=== PATIENT | female | born 1935 ===

== ENCOUNTER 2016-08-05 04:39 | Inpatient (IN) | payer MEDICARE, MEDICAID ==
[2016-08-05] MEDS ORDERED: Albuterol-Ipratrop 3 mg / 0.5 (3 ml) UD INH STA ×2 (05:10→06:31)
--- NOTE | 2016-08-05 05:40 | ED PDOC ---
HPI: SOB/CHF/COPD Time Seen by Provider: 08/05/16 04:53 Chief Complaint (Nursing): Shortness Of Breath Chief Complaint (Provider): Shortness of breath History Per: Patient History/Exam Limitations: no limitations Onset/Duration Of Symptoms: Days (1) Current Symptoms Are (Timing): Still Present Associated Symptoms: Ankle/Leg Swelling. denies: Fever Additional History Per: Patient Additional Complaint(s): The pt is a 81yo female with PMHx of morbid obesity, HTN, asthma, presents to the ED for evaluation of worsening SOB for the past 1 day. Pt reports her SOB is worse when recumbent and states she has used her inhaler with little to no relief. She reports associated dry cough but denies any fever , nausea, vomiting or diarrhea. Currently offers no additional medical complaints. PMD: Dr. Je Valdez Past Medical History Reviewed: Historical Data, Nursing Documentation, Vital Signs Vital Signs: Last Vital Signs Temp 97.9 F 08/05/16 09:30 Pulse 92 H 08/05/16 10:39 Resp 16 08/05/16 10:39 BP 161/92 H 08/05/16 14:41 Pulse Ox 98 08/05/16 10:39 - Medical History PMH: HTN, Pneumonia Denies: HIV, Chronic Kidney Disease - Family History Family History: States: Unknown Family Hx - Social History Current smoker - smoking cessation education provided: No Alcohol: None Drugs: Denies - Home Medications Home Medications: Ambulatory Orders Medication Instructions Recorded Budesonide/Formoterol Fumarate 1 puff IH DAILY 08/05/16 [Symbicort 160-4.5 Mcg Inhaler] Valsartan [Diovan] 80 mg PO BID 08/05/16 clonazePAM [Klonopin] 0.5 mg PO HS 08/05/16 - Allergies Allergies/Adverse Reactions: Allergies Allergy/AdvReac Type Severity Reaction Status Date / Time No Known Allergies Allergy Verified 08/05/16 04:51 Review of Systems ROS Statement: Except As Marked, All Systems Reviewed And Found Negative Constitutional: Negative for: Fever Respiratory: Positive for: Cough (dry), Shortness of Breath Gastrointestinal: Negative for: Nausea, Vomiting, Diarrhea Physical Exam - Reviewed Nursing Documentation Reviewed: Yes Vital Signs Reviewed: Yes - Physical Exam Appears: Positive for: Well (pt morbidly obese), Non-toxic, No Acute Distress Head Exam: Positive for: ATRAUMATIC, NORMAL INSPECTION, NORMOCEPHALIC Skin: Positive for: Normal Color Eye Exam: Positive for: Normal appearance Neck: Positive for: Normal, Supple Cardiovascular/Chest: Positive for: Regular Rate, Rhythm Respiratory: Positive for: Wheezing (bilateral wheeze noted). Negative for: Respiratory Distress Extremity: Positive for: Pedal Edema (3+ edema lower extremity b/l. pt reports chronic lymphedema.) Neurologic/Psych: Positive for: Alert, Oriented - Laboratory Results Result Diagrams: 08/05/16 05:48 08/05/16 05:48 - ECG O2 Sat by Pulse Oximetry: 100 (RA) Pulse Ox Interpretation: Normal Medical Decision Making Medical Decision Making: Time: 0502 Impression: 81yo female w/ dyspnea in setting of obesity, HTN and asthma Plan: * Labs * CXR * Duoneb * Lasix Time: 0631 Labs reviewed and show no clinically significant abnormalities. CXR shows no acute disease. Pt to be placed on observation status for asthma exacerbation. Case discussed with Dr. Jordan, medicine inventory control analyst. Scribe Attestation: Documented by Carri Coronado acting as a scribe for Haider Acosta MD. Provider Attestation: All medical record entries made by the Scribe were at my direction and personally dictated by me. I have reviewed the chart and agree that the record accurately reflects my personal performance of the history, physical exam, medical decision making, and the department course for this patient. I have also personally directed, reviewed, and agree with the discharge instructions and disposition. Disposition - Clinical Impression Clinical Impression: Asthma exacerbation, Respiratory distress - Patient ED Disposition Is Patient to be Admitted: Yes - Disposition Disposition Time: 06:30 Condition: FAIR
[2016-08-05] MEDS ORDERED: Albuterol-Ipratrop 3 mg / 0.5 (3 ml) UD ONE ×2 (05:45→06:41)
[2016-08-05 05:54] LABS: BASO # 0.1 K/uL (0.0-0.2); BASO % 0.8 % (0.0-2.0); EOS # 0.1 K/uL (0.0-0.7); EOS % 1.7 % (0.0-4.0); HEMATOCRIT 44.3 % (34.0-47.0); LYMPH # 1.1 K/uL (1.0-4.3); LYMPH % 15.2 % (20.0-40.0); MEAN CELL VOLUME 80.1 fl (81.0-99.0); MEAN CORPUSCULAR HEMOGLOBIN 26.2 pg (27.0-31.0); MEAN CORPUSCULAR HGB CONC 32.7 g/dL (33.0-37.0); MEAN PLATELET VOLUME 8.4 fl (7.2-11.7); MONO # 0.7 K/uL (0.0-0.8); MONO % 9.9 % (0.0-10.0); NEUT # 5.4 K/uL (1.8-7.0); NEUT % 72.4 % (50.0-75.0); RED CELL DISTRIBUTION WIDTH 16.2 % (11.5-14.5); WHITE BLOOD COUNT 7.5 K/uL (4.8-10.8)
[2016-08-05 06:09] LABS: ALB/GLOB RATIO 1.1 (1.0-2.1); ALKALINE PHOSPHATASE 80 U/L (38-126); ALT/SGPT 37 U/L (9-52); AST/SGOT 35 U/L (14-36); BILIRUBIN,TOTAL 1.4 mg/dl (0.2-1.3); BLOOD UREA NITROGEN 21 mg/dl (7-17); CALCIUM 9.6 mg/dL (8.4-10.2); CARBON DIOXIDE 27 mmol/L (22-30); CHLORIDE 98 mmol/L (98-107); GFR AFRICAN-AMERICAN > 60; GLUCOSE,RANDOM 119 mg/dL (65-105); SODIUM 136 mmol/l (132-148); TOTAL PROTEIN 8.4 G/DL (6.3-8.2)
[2016-08-05 06:12] LABS: POTASSIUM 4.5 MMOL/L (3.6-5.0)
[2016-08-05 06:23] LABS: PARTIAL THROMBOPLASTIN TIME 29.4 SECONDS (23.3-32.5)
--- NOTE | 2016-08-05 13:43 | CP.PCM.CON ---
History of Present Illness - History of Present Illness History of Present Illness: psychiatry consult ordered by dr. jessica reason: depression cc: "i think it's because i told my daughter 'what is the point of me living'" hpi: 81 yo [place] female who is living alone in [facility] next to her younger sister. pt with copd exacerbation. pt lives alone. pt states she has been more depressed as her breathing problems have become worse and also that her sleep has been problematic- cannot get to sleep without klonopin and has trouble maintaining sleep. her symptoms of depression include: easily irritated, low energy, passive suicidal thoughts, feeling hopeless, isolating from friends/ family. pt denies any auditory visual hallucinations. denies any episodes of depression in her past. pt reports she would never act on her suicidal thoughts because she is a devout faith. she states she prays to [place] to relieve her suffering. past psych: none social: moved from [place] to [facility], [place] and then finally [place]. lived in same [facility] in [place] since 1970. 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 denies any trauma history of use of illicit substances medical: pt is obese. copd, htn. see dr. jessica h & p mse: obese female, oriented x 3. alert. thoughts are goal directed and logical. pt's mood is depressed, her affect is constricted, but she attempts to smile. she seems to brighten when engaged in conversation. she reports passive wish, but no plan or intent to harm self. she denies any a/v hallucinations. denies any homicidal thoughts. she has fair i/j. assessment: major depression single episode moderate recommendation: remeron 7.5mg for sleep/mood could benefit from outpt treatment will continue to follow Past Patient History - Tetanus Immunizations Tetanus Immunization: Unknown - Past Medical History & Family History Past Medical History?: Yes - Past Social History Smoking Status: Never Smoked - CARDIAC Hx Cardiac Disorders: Yes - PULMONARY Hx Respiratory Disorders: Yes - NEUROLOGICAL Hx Neurological Disorder: No - HEENT Hx HEENT Problems: No - RENAL Hx Chronic Kidney Disease: No - ENDOCRINE/METABOLIC Hx Endocrine Disorders: No - HEMATOLOGICAL/ONCOLOGICAL Hx Blood Disorders: No - INTEGUMENTARY Hx Dermatological Problems: No - MUSCULOSKELETAL/RHEUMATOLOGICAL Hx Falls: Yes (at home) - GASTROINTESTINAL Hx Gastrointestinal Disorders: No - GENITOURINARY/GYNECOLOGICAL Hx Genitourinary Disorders: No - PSYCHIATRIC Hx Substance Use: No - SURGICAL HISTORY Hx Surgeries: No - ANESTHESIA Hx Anesthesia: No Meds Allergies/Adverse Reactions: Allergies Allergy/AdvReac Type Severity Reaction Status Date / Time No Known Allergies Allergy Verified 08/05/16 04:51 - Medications Medications: Current Medications Albuterol/Ipratropium (Duoneb 3 Mg/0.5 Mg (3 Ml) Ud) 3 ml INH RQ6 [facility] Clonazepam (Klonopin) 0.5 mg PO HS [facility] Furosemide (Lasix) 40 mg IVP DAILY [facility] Methylprednisolone 60 mg/ (Sodium Chloride) 50 mls @ 100 mls/hr IVPB Q8 [facility] Valsartan (Diovan) 160 mg PO DAILY [facility] Results - Vital Signs Recent Vital Signs: Last Vital Signs Temp 97.9 F 08/05/16 09:30 Pulse 92 H 08/05/16 10:39 Resp 16 08/05/16 10:39 BP 161/92 H 08/05/16 10:39 Pulse Ox 98 08/05/16 10:39 - Labs Result Diagrams: 08/05/16 05:48 08/05/16 05:48
[2016-08-05] MEDS: methylPREDNISolone 60 MG in Sodium Chloride 0.9% 50 ML IVPB SCH ×2 (14:40→18:36)
--- NOTE | 2016-08-05 16:22 | HP ---
The patient is a 81-year-old female who was admitted via the Emergency Room because of progressively worsening shortness of breath, exercise intolerance and difficulty getting out of bed and walking for the past several weeks prior to presentation, worse on the day of admission. She has been following up with Dr. Valdez as an outpatient, but the daughter has been admitted to the hospital and she has not seen a doctor for a while. She has been bedbound at home and unable to walk around because of s welling of the legs and shortness of breath. PAST MEDICAL HISTORY: Morbid obesity, hypertension, asthma/COPD. FAMILY HISTORY: Noncontributory. SOCIAL HISTORY: She does not smoke or drink, but her ex- used to smoke, does not use drugs. REVIEW OF SYSTEMS: Essentially remarkable for swelling of her legs, exercise intolerance, chest tigh tness, cough, postnasal drip and inability to expectorate mucus. PHYSICAL EXAMINATION: GENERAL: The patient is alert and oriented, morbidly obese. VITAL SIGNS: Remarkable for a blood pressure of 161/92 with a pulse of 92, respiratory rate is 16, O 2 sat 98% on room air. The patient is afebrile. HEENT: Mouth shows fair hygiene. Pupils equal, react to light and accommodation. NECK: JVP flat. LUNGS: Poor aeration bilaterally with audible rales and wheezing. HEART: S1, S2. ABDOMEN: Obese, nontender, no organomegaly appreciated. EXTREMITIES: Bilateral 4+ pitting pedal edema with what appears to be lymphedema. CENTRAL NERVOUS SYSTEM: The patient is alert and oriented x 3, but has an unsteady gait because of s welling of legs. No other gross deficits appreciated. LABORATORY DATA: Remarkable for WBC of 7.5, hemoglobin 14.5, platelet count of 196,000. Sodium 136, potassium 4.5, BUN of 21, creatinine 0.6, serum glucose 119. PT 10.8, INR 1.0. Chest x-ray official report pending. IMPRESSION: Acute exacerbation of chronic obstructive pulmonary disease, hypertension, poorly contro lled, morbid obesity with a questionable history of obstructive sleep apnea syndrome, history of anxi ety disorder, history of hypertension. PLAN: Intravenous steroids, aerosolized bronchodilators, IV diuretics for pedal edema. Both patient and the daughter request usp placement and psychiatry evaluation because patient complains of depression and has been depressed at home. We will obtain psychiatry evaluation and social servic es consult in a.m. Gutierrez Jordan MD cc: [id number] TT: 08/05/2016 16:21:18 en
[2016-08-05] MEDS: Albuterol-Ipratrop 3 mg / 0.5 (3 ml) UD INH SCH (19:31)
[2016-08-05] MEDS: Enoxaparin 40 mg Syringe SC SCH (21:42)
[2016-08-06] MEDS: methylPREDNISolone 60 MG in Sodium Chloride 0.9% 50 ML IVPB SCH ×3 (00:22→17:07)
--- NOTE | 2016-08-06 01:20 | CARD ---
APPROVED REPORT EKG Measurement Heart [id number] <Conclusion> Normal sinus rhythm Minimal voltage criteria for LVH, may be normal variant Borderline ECG
[2016-08-06] MEDS: Albuterol-Ipratrop 3 mg / 0.5 (3 ml) UD INH SCH ×4 (01:22→19:31)
--- NOTE | 2016-08-06 08:33 | CP.PCM.PN ---
Subjective - Date & Time of Evaluation Date of Evaluation: 08/06/16 Time of Evaluation: 08:33 - Subjective Subjective: STILL DYSPNEIC ON MILD EXERTION Objective - Vital Signs/Intake and Output Vital Signs (last 24 hours): Temp Pulse Resp BP Pulse Ox 98.3 F 98 H 18 163/82 H 98 08/05/16 23:00 08/05/16 23:00 08/05/16 23:00 08/05/16 23:00 08/05/16 23:00 - Medications Medications: Current Medications Albuterol/Ipratropium (Duoneb 3 Mg/0.5 Mg (3 Ml) Ud) 3 ml INH RQ6 [facility] Last Admin: 08/06/16 01:22 Dose: 3 ml Clonazepam (Klonopin) 0.5 mg PO HS [facility] Last Admin: 08/05/16 21:43 Dose: 0.5 mg Enoxaparin Sodium (Lovenox) 40 mg SC DAILY [facility] PRN Reason: Protocol Last Admin: 08/05/16 21:42 Dose: 40 mg Furosemide (Lasix) 40 mg IVP DAILY [facility] Last Admin: 08/05/16 14:41 Dose: 40 mg Methylprednisolone 60 mg/ (Sodium Chloride) 50 mls @ 100 mls/hr IVPB Q8 [facility] Last Admin: 08/06/16 00:22 Dose: 100 mls/hr Mirtazapine (Remeron) 7.5 mg PO HS [facility] Last Admin: 08/05/16 21:44 Dose: 7.5 mg Valsartan (Diovan) 160 mg PO DAILY [facility] - Labs Labs: PT 10.8 SECONDS (9.6-11.2) 08/05/16 05:48 INR 1.04 (0.92-1.08) 08/05/16 05:48 APTT 29.4 SECONDS (23.3-32.5) 08/05/16 05:48 - Constitutional Appears: No Acute Distress - Head Exam Head Exam: ATRAUMATIC, NORMAL INSPECTION, NORMOCEPHALIC - Eye Exam Eye Exam: EOMI, Normal appearance, PERRL Pupil Exam: NORMAL ACCOMODATION, PERRL - ENT Exam ENT Exam: Mucous Membranes Moist, Normal Exam - Neck Exam Neck Exam: Full ROM, Normal Inspection. absent: Lymphadenopathy - Respiratory Exam Respiratory Exam: Decreased Breath Sounds, Prolonged Expiratory Phase, Rales, NORMAL BREATHING PATTERN - Cardiovascular Exam Cardiovascular Exam: REGULAR RHYTHM, +S1, +S2. absent: Murmur - GI/Abdominal Exam GI & Abdominal Exam: Soft, Normal Bowel Sounds. absent: Tenderness - Rectal Exam Rectal Exam: NORMAL INSPECTION - Extremities Exam Extremities Exam: Full ROM, Normal Capillary Refill, Normal Inspection, Pedal Edema. 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
[2016-08-06] MEDS: Enoxaparin 40 mg Syringe SC SCH (08:42)
--- NOTE | 2016-08-06 11:04 | RAD ---
HISTORY: SOB COMPARISON: Chest x-ray performed 01/14/15 TECHNIQUE: Chest, one view. FINDINGS: Examination limited by habitus. LUNGS: The patient's chin obscures evaluation of the lung apices. No focal consolidation. Please note that chest x-ray has limited sensitivity for the detection of pulmonary masses. PLEURA: No significant pleural effusion identified. No definite pneumothorax . CARDIOVASCULAR: Cardiomegaly. Dense atherosclerotic calcifications of the aorta. OSSEOUS STRUCTURES: Degenerative changes of the spine. Acromioclavicular arthropathy. VISUALIZED UPPER ABDOMEN: Unremarkable. OTHER FINDINGS: None. IMPRESSION: No focal consolidation, significant pleural effusion, or definite pneumothorax identified.
[2016-08-07] MEDS: Albuterol-Ipratrop 3 mg / 0.5 (3 ml) UD INH SCH ×4 (01:17→19:35)
[2016-08-07] MEDS: methylPREDNISolone 60 MG in Sodium Chloride 0.9% 50 ML IVPB SCH ×3 (01:30→20:58)
--- NOTE | 2016-08-07 08:43 | CP.PCM.PN ---
Subjective - Date & Time of Evaluation Date of Evaluation: 08/07/16 Time of Evaluation: 08:43 - Subjective Subjective: NO CHEST PAINS OR SOB STILL HAS DIFFICULTY GETTING OUT OF BED Objective - Vital Signs/Intake and Output Vital Signs (last 24 hours): Temp Pulse Resp BP Pulse Ox 98.2 F 72 18 127/73 97 08/07/16 07:38 08/07/16 07:38 08/07/16 07:38 08/07/16 07:38 08/07/16 07:38 - Medications Medications: Current Medications Acetaminophen (Tylenol 325mg Tab) 650 mg PO Q4 PRN PRN Reason: Headache Albuterol/Ipratropium (Duoneb 3 Mg/0.5 Mg (3 Ml) Ud) 3 ml INH RQ6 [facility] Last Admin: 08/07/16 08:23 Dose: Not Given Clonazepam (Klonopin) 0.25 mg PO HS [facility] Last Admin: 08/06/16 22:49 Dose: 0.25 mg Enoxaparin Sodium (Lovenox) 40 mg SC DAILY [facility] PRN Reason: Protocol Last Admin: 08/06/16 08:42 Dose: 40 mg Furosemide (Lasix) 40 mg IVP DAILY [facility] Last Admin: 08/06/16 08:48 Dose: 40 mg Methylprednisolone 60 mg/ (Sodium Chloride) 50 mls @ 100 mls/hr IVPB Q8 [facility] Last Admin: 08/07/16 01:30 Dose: 100 mls/hr Mirtazapine (Remeron) 7.5 mg PO HS [facility] Last Admin: 08/06/16 22:49 Dose: 7.5 mg Valsartan (Diovan) 160 mg PO DAILY [facility] Last Admin: 08/06/16 08:42 Dose: 160 mg - Labs Labs: PT 10.8 SECONDS (9.6-11.2) 08/05/16 05:48 INR 1.04 (0.92-1.08) 08/05/16 05:48 APTT 29.4 SECONDS (23.3-32.5) 08/05/16 05:48 - Constitutional Appears: No Acute Distress - Head Exam Head Exam: ATRAUMATIC, NORMAL INSPECTION, NORMOCEPHALIC - Eye Exam Eye Exam: EOMI, Normal appearance, PERRL Pupil Exam: NORMAL ACCOMODATION, PERRL - ENT Exam ENT Exam: Mucous Membranes Moist, Normal Exam - Neck Exam Neck Exam: Full ROM, Normal Inspection. absent: Lymphadenopathy - Respiratory Exam Respiratory Exam: Decreased Breath Sounds, Prolonged Expiratory Phase, Rales, NORMAL BREATHING PATTERN - Cardiovascular Exam Cardiovascular Exam: REGULAR RHYTHM, +S1, +S2. absent: Murmur - GI/Abdominal Exam GI & Abdominal Exam: Soft, Normal Bowel Sounds. absent: Tenderness - Rectal Exam Rectal Exam: NORMAL INSPECTION - Extremities Exam Extremities Exam: Full ROM, Normal Capillary Refill, Normal Inspection, Pedal Edema. absent: Joint Swelling - Back Exam Back Exam: NORMAL INSPECTION - Neurological Exam Neurological Exam: Alert, Awake, CN II-XII Intact, Normal Gait, Oriented x3 - Psychiatric Exam Psychiatric exam: Normal Affect, Normal Mood - Skin Skin Exam: Dry, Intact, Normal Color, Warm Assessment and Plan - Assessment and Plan (Free Text) Assessment: ACUTE EXAC OF COPD PEDAL EDEMA MORBID OBESITY HX OF OBSTRUCTIVE SLEEP APNEA SYNDROME Plan: CONTINUE PRESENT RX AWAITING PLACEMENT
[2016-08-07] MEDS: Enoxaparin 40 mg Syringe SC SCH (09:17)
--- NOTE | 2016-08-07 14:54 | IP.NPCORE ---
COPD Progress Note - COPD Progress Note Spirometry Assessment Completed:: No Symptoms:: Increase in Dyspnea Initial CXR:: yes Date:: 08/05/16 Oxygen Saturation/Pulse Oximetry:: 93 ABG Not Indicated (Symptoms Improved): Yes Nebulizers Q2-4 hrs:: Duonebs/Albuterol Therapy Antibiotics Not Indicated: Yes Systemic Steroids w/ methylprednisolone Name/Dose/Frequency:: Methylprednisolone 60mg Q12H Oxygen Delivery Method: Room Air
[2016-08-08] MEDS: Albuterol-Ipratrop 3 mg / 0.5 (3 ml) UD INH SCH ×3 (07:41→19:41)
[2016-08-08] MEDS: methylPREDNISolone 60 MG in Sodium Chloride 0.9% 50 ML IVPB SCH (08:50)
[2016-08-08] MEDS: Enoxaparin 40 mg Syringe SC SCH (08:51)
--- NOTE | 2016-08-08 10:07 | CP.PCM.PN ---
Subjective - Date & Time of Evaluation Date of Evaluation: 08/08/16 Time of Evaluation: 10:07 - Subjective Subjective: STILL COUGHING UP CLEAR MUCOID SPUTUM NO CHEST PAINS/SOB SCHEDULED FOR D/C TO [facility] Objective - Vital Signs/Intake and Output Vital Signs (last 24 hours): Temp Pulse Resp BP Pulse Ox 98.2 F 64 18 152/80 H 98 08/08/16 07:36 08/08/16 07:36 08/08/16 07:36 08/08/16 07:36 08/08/16 07:36 - Medications Medications: Current Medications Acetaminophen (Tylenol 325mg Tab) 650 mg PO Q4 PRN PRN Reason: Headache Albuterol/Ipratropium (Duoneb 3 Mg/0.5 Mg (3 Ml) Ud) 3 ml INH RQ6 [facility] Last Admin: 08/08/16 07:41 Dose: 3 ml Clonazepam (Klonopin) 0.25 mg PO HS [facility] Last Admin: 08/07/16 21:41 Dose: 0.25 mg Enoxaparin Sodium (Lovenox) 40 mg SC DAILY [facility] PRN Reason: Protocol Last Admin: 08/08/16 08:51 Dose: 40 mg Methylprednisolone 60 mg/ (Sodium Chloride) 50 mls @ 100 mls/hr IVPB Q12 [facility] Last Admin: 08/08/16 08:50 Dose: 100 mls/hr Mirtazapine (Remeron) 7.5 mg PO HS [facility] Last Admin: 08/07/16 21:41 Dose: 7.5 mg Valsartan (Diovan) 160 mg PO DAILY [facility] Last Admin: 08/08/16 08:51 Dose: 160 mg - Labs Labs: PT 10.8 SECONDS (9.6-11.2) 08/05/16 05:48 INR 1.04 (0.92-1.08) 08/05/16 05:48 APTT 29.4 SECONDS (23.3-32.5) 08/05/16 05:48 - Constitutional Appears: No Acute Distress, Chronically Ill - Head Exam Head Exam: ATRAUMATIC, NORMAL INSPECTION, NORMOCEPHALIC - Eye Exam Eye Exam: EOMI, Normal appearance, PERRL Pupil Exam: NORMAL ACCOMODATION, PERRL - ENT Exam ENT Exam: Mucous Membranes Moist, Normal Exam - Neck Exam Neck Exam: Full ROM, Normal Inspection. absent: Lymphadenopathy - Respiratory Exam Respiratory Exam: Decreased Breath Sounds, NORMAL BREATHING PATTERN - Cardiovascular Exam Cardiovascular Exam: REGULAR RHYTHM, +S1, +S2. absent: Murmur - GI/Abdominal Exam GI & Abdominal Exam: Soft, Normal Bowel Sounds. absent: Tenderness - Rectal Exam Rectal Exam: NORMAL INSPECTION - Extremities Exam Extremities Exam: Full ROM, Normal Capillary Refill, Normal Inspection, Pedal Edema. absent: Joint Swelling - Back Exam Back Exam: NORMAL INSPECTION - Neurological Exam Neurological Exam: Abnormal Gait, Alert, Awake, CN II-XII Intact, Oriented x3 - Psychiatric Exam Psychiatric exam: Normal Affect, Normal Mood - Skin Skin Exam: Dry, Intact, Normal Color, Warm Assessment and Plan - Assessment and Plan (Free Text) Assessment: COPD OBESITY Plan: FOR DISCHARGE TO [facility] WHEN A BED IS AVALIABLE
[2016-08-08 16:23] VITALS: BP 147/68; PULSE 82; RESP 20; TEMP 98.6; O2SAT 93
== END 2016-08-08 19:30 | DRG 191 ==
LOC: H.ER 04:39 → OBSVTOIN 06:31 → INTOOBSV 06:31 → H.ERHOLD 06:31 → H.MEDSURG1 10:45
PROVIDERS: ADMIT Internal Medicine Pulmonary Disease; ATTEND Internal Medicine Pulmonary Disease
PROC: 3E0F73Z Introduction of Anti-inflammatory into Respiratory Tract, Via Natural or Artificial Opening (ICD-10-PCS; principal; 2016-08-05)
DX: J44.1 Chronic obstructive pulmonary disease with (acute) exacerbation (principal); J45.901 Unspecified asthma with (acute) exacerbation; Z68.42 Body mass index [BMI] 45.0-49.9, adult; E66.01 Morbid (severe) obesity due to excess calories; G47.33 Obstructive sleep apnea (adult) (pediatric); F32.1 Major depressive disorder, single episode, moderate; I10 Essential (primary) hypertension; R26.81 Unsteadiness on feet; F41.9 Anxiety disorder, unspecified; Z75.1 Person awaiting admission to adequate facility elsewhere; Z74.01 Bed confinement status; Z87.01 Personal history of pneumonia (recurrent)